=== PATIENT | female | born 1960 | race Two or more races ===

== ENCOUNTER 2017-06-17 07:09 | Day surgery (SDC) | payer BC ==
[2017-06-17 07:39] VITALS: BMI 30.6
[2017-06-17] MEDS ORDERED: Lactated Ringer's 500 ML IV ONE (07:42)
[2017-06-17] MEDS ORDERED: Propofol 10 mg/ml Inj (20 ML) ONE (08:00)
[2017-06-17] MEDS ORDERED: Lidocaine 2% MPF (5 ml) Inj ONE (08:00)
[2017-06-17 08:45] VITALS: RESP 17; TEMP 96.8
[2017-06-17 08:59] VITALS: BP 98/64; PULSE 65; O2SAT 99
== END 2017-06-17 09:45 | disposition home or self-care (01) ==
LOC: H.ENDO 07:09
PROVIDERS: ATTEND Internal Medicine Gastroenterology
DX: Z12.11 Encounter for screening for malignant neoplasm of colon (principal); K22.8 Other specified diseases of esophagus; K44.9 Diaphragmatic hernia without obstruction or gangrene; K29.70 Gastritis, unspecified, without bleeding; K64.9 Unspecified hemorrhoids; R73.03 Prediabetes; E78.5 Hyperlipidemia, unspecified; I10 Essential (primary) hypertension; K21.9 Gastro-esophageal reflux disease without esophagitis; E66.9 Obesity, unspecified; M81.0 Age-related osteoporosis without current pathological fracture; K29.50 Unspecified chronic gastritis without bleeding; B96.81 Helicobacter pylori [H. pylori] as the cause of diseases classified elsewhere
CPT/HCPCS: 43239; 45378; 88305; J2704; J7120